=== PATIENT | female | born 1965 | race Caucasian/White ===

== ENCOUNTER 2019-03-23 07:25 | Outpatient (CLI) | payer OTHER ==
[2019-03-23 14:34] LABS: #Basophils 0.1 thou/uL (0.0-0.2); #Eosinphils 0.2 thou/uL (0.0-0.7); #Lymphocytes 3.7 thou/uL (1.20-3.40); #Monocytes 0.6 thou/uL (0.11-0.59); #Neutrophils 3.9 thou/uL (1.40-6.50); %Basophils 1.5 % (0.0-1.0); %Eosinophils 2.3 % (0.0-10.0); %Lymphocytes 43.9 % (21.0-51.0); %Monocytes 6.5 % (0.0-10.0); %Neutrophils 45.8 % (42.0-75.0); Hemoglobin 14.1 g/dL (12.0-16.0); Mean Corpuscular HGB CONC 32.7 g/dL (32.0-36.0); Mean Corpuscular Hemoglobin 33.3 pg (27.0-31.0); Mean Platelet Volume 6.7 fL (7.4-10.4); Platelet Count 366 thou/uL (130-400); RBC Distribution Width 11.1 % (11.5-14.5); Red Blood Cell (RBC) Count 4.25 mill/uL (4.20-5.40); White Blood Cell (WBC) Count 8.5 thou/uL (4.8-10.8)
[2019-03-23 14:52] LABS: Anion Gap 14 mmol/L (10-20); BUN (Urea Nitrogen) 10 mg/dL (9.8-20.1); Calc. Creatinine Clearance 0 mL/min (70-130); Calcium 9.7 mg/dL (7.8-10.44); Carbon Dioxide 25 mmol/L (22-29); Chloride 103 mmol/L (98-107); Estimated GFR-MDRD 89; Glucose 84 mg/dL (70-105); Potassium 4.6 mmol/L (3.5-5.1); Sodium 137 mmol/L (136-145)
--- NOTE | 2019-03-25 14:30 | EKG ---
Test Reason : Blood Pressure : / mmHG Vent. Rate : 078 BPM Atrial Rate : 078 BPM P-R Int : 162 ms QRS Dur : 082 ms QT Int : 364 ms P-R-T Axes : 050 056 012 degrees QTc Int : 414 ms Normal sinus rhythm Normal ECG No previous ECGs available Confirmed by ARTURO CONNER (2) on 03/25/2019 2:29:54 PM Referred By: IERO Confirmed By:ARTURO CONNER
== END 2019-03-23 07:26 | disposition home or self-care (01) ==
LOC: LABBT 07:25
PROVIDERS: ATTEND Orthopaedic Surgery
DX: Z01.818 Encounter for other preprocedural examination (principal); M75.101 Unspecified rotator cuff tear or rupture of right shoulder, not specified as traumatic
CPT/HCPCS: 80048; 85025; 93005; 93010

== ENCOUNTER 2019-03-26 09:22 | Day surgery (SDC) | payer OTHER ==
[2019-03-23 13:21] VITALS: BMI 37.8
[2019-03-26] MEDS ORDERED: Midazolam HCl 2 mg/2 ml Vial ONE (09:33)
[2019-03-26] MEDS ORDERED: Fentanyl 100 MCG/2 ML VIAL ONE (09:34)
[2019-03-26] MEDS ORDERED: Ropivacaine 0.2% 550 ML 550 ML NERVE BLCK SCH (09:45)
[2019-03-26] MEDS ORDERED: HYDROcodone/Acetaminophen 5/325 mg Tablet PO PRN ×2 (09:45)
[2019-03-26] MEDS ORDERED: traMADol HCl 50 MG TAB PO PRN ×2 (09:45)
[2019-03-26] MEDS ORDERED: Promethazine HCl 25 MG/ML VIAL IM PRN (09:45)
[2019-03-26] MEDS ORDERED: Ondansetron PF 4 MG/2 ML Vial IVP PRN (09:45)
[2019-03-26] MEDS ORDERED: Zolpidem Tartrate 5 MG TAB PO PRN (09:45)
[2019-03-26] MEDS ORDERED: Fentanyl 100 MCG/2 ML VIAL IV PRN (09:46)
[2019-03-26] MEDS ORDERED: Ondansetron PF 4 MG/2 ML Vial ONE (10:10)
[2019-03-26] MEDS ORDERED: Rocuronium Bromide 10 MG/ML (10ML VIAL) ONE (10:10)
[2019-03-26] MEDS ORDERED: Glycopyrrolate 0.2 MG/ML 5 ML SYRINGE ONE (10:10)
[2019-03-26] MEDS ORDERED: PROPOFOL 200 MG/20 ML VIAL ONE (10:10)
[2019-03-26] MEDS ORDERED: Lidocaine 1% PF 5 ML VIAL ONE (10:10)
[2019-03-26] MEDS ORDERED: Ropivacaine 0.2% HCl/PF (40 MG/20 ML VIAL) ONE (10:10)
[2019-03-26] MEDS ORDERED: Ropivacaine 0.5% HCl/PF (150 MG/30 ML VIAL) ONE (10:10)
[2019-03-26] MEDS ORDERED: Lidocaine 1% w/Epinephrine 1:100K 30 ML VIAL ONE (10:48)
[2019-03-26] MEDS ORDERED: Ketorolac Tromethamine 30 MG/ML VIAL IVP SCH (12:00)
--- NOTE | 2019-03-27 14:13 | OP ---
DATE OF PROCEDURE: 03/26/2019 PREOPERATIVE DIAGNOSIS: Left shoulder impingement, degenerative labral tear. POSTOPERATIVE DIAGNOSES: 1. Left shoulder impingement, degenerative labral tear. 2. Overall picture of gross inflammation of the left shoulder in both the subacromial as well as glenohumeral joints. LINE STAKER: Paras Pink PA-C. ESTIMATED BLOOD LOSS: Minimal. The patient did have a general anesthetic as well as a preoperative block. IMPLANTS: A 7 x 23 Bio[employer]posite Bio-Tenodesis screw. DISPOSITION: She did go to recovery room in stable condition. COMPLICATIONS: There were no complications. INDICATIONS: This 53-year-old female was having severe pain in the left shoulder and failed nonoperative treatment. At this time, she opted to have surgery. After verbal consent forms were explained and signed, she was taken to the operating room and at this time was given general anesthetic. Once the level of anesthesia was appropriate, the patient was rolled into the right lateral decubitus position with all bony prominences well padded. An axillary roll was placed underneath the right axilla and a beanbag was inflated to hold in this position. All bony prominences were well padded. The left shoulder was then taken through full range of motion and was not found to have any significant stiffness. The arm was then hung up with 10 pounds. We then prepped and draped the left shoulder and upper extremity in standard surgical fashion. Bony anatomical landmarks were drawn out and the subacromial space was infiltrated with lidocaine with epinephrine. At this time, a posterior portal was established and the scope was placed into the shoulder joint. Then an anterior working portal was then made using a needle localization technique. Diagnostic arthroscopy commenced. What we found was an overall gross picture of inflammation with many areas of synovitis, areas of some hemorrhage. There was a degenerative labral tear, most significantly at the superior labrum. Subscapularis was intact. Rotator cuff insertion overall was intact. The articular surfaces of the humeral head and glenoid were in good condition. No loose bodies were noted in the axillary pouch. At this time, a needle was placed through the biceps tendon to place the stitch through it and the biceps was taken off the superior labral origin with the SERFAS energy. We then repositioned the camera into the subacromial space. Lateral working portal was made. We then proceeded to remove a copious amount of bursa from the subacromial space. We also did do a small decompression with the SERFAS energy as well as the shaver. The rotator cuff was found to be intact. The scope was removed. Shoulder was drained. A 15-blade was used to incise down through skin. Bovie was used to coagulate any brisk venous bleeding. The deltoid fascia was opened sharply. Finger dissection was used to dissect in line with the fibers of the deltoid to get down to the underlying transverse humeral ligament. This was opened up and the biceps tendon was pulled out into the wound. The biceps tendon was sutured and the intra-articular portion was removed. A guide pin was placed in the groove. A 7 mm reamer was used to ream to a depth of 25 and a 7 x 23 [employer]posite Bio-Tenodesis screw was then placed in standard fashion and performed our biceps tenodesis. The sutures were tied over top of this so that the screw could not back out. At this time, we then thoroughly irrigated and dried our wound. We allowed the deltoid to close upon itself. The deltoid fascia was closed with a running Vicryl, 2-0 Vicryl and nylon stitches on skin. Portals were closed with simple nylon stitch. Bulky sterile dressing was then applied. The patient was awakened. She was taken to recovery room in stable condition. All counts were correct at the end of the case and she did receive preoperative IV antibiotics. Job ID: [id number]
== END 2019-03-26 14:05 | disposition home or self-care (01) ==
LOC: SDC 09:22
PROVIDERS: ATTEND Orthopaedic Surgery
PROC: 0RHK04Z Insertion of Internal Fixation Device into Left Shoulder Joint, Open Approach (ICD-10-PCS; principal; 2019-03-26)
PROC: 0LS20ZZ Reposition Left Shoulder Tendon, Open Approach (ICD-10-PCS; principal; 2019-03-26)
PROC: 0RBK4ZZ Excision of Left Shoulder Joint, Percutaneous Endoscopic Approach (ICD-10-PCS; principal; 2019-03-26)
DX: M25.812 Other specified joint disorders, left shoulder (principal); S43.492A Other sprain of left shoulder joint, initial encounter; M65.88 Other synovitis and tenosynovitis, other site; F17.200 Nicotine dependence, unspecified, uncomplicated; G43.909 Migraine, unspecified, not intractable, without status migrainosus; J44.9 Chronic obstructive pulmonary disease, unspecified; Z79.899 Other long term (current) drug therapy
CPT/HCPCS: A4306; C1713; J0690; J2001; J2250; J2405; J2704; J2795; J3010